=== PATIENT | female | born 1940 | race Caucasian/White ===

== ENCOUNTER 2025-03-01 16:31 | Outpatient (CLI) | payer MEDICARE ==
[2025-03-02 11:25] LABS: Reference Lab Name LABCORP
[2025-03-02 12:49] LABS: Iron 29 ug/dL (50-170); Iron Binding Capacity, Total 351 mcg/dL (265-497)
== END 2025-03-01 16:32 | disposition home or self-care (01) ==
LOC: MADLAB 16:31
PROVIDERS: ATTEND Family Medicine
DX: D64.9 Anemia, unspecified (principal)
CPT/HCPCS: 82607; 82746; 83540; 83550